=== PATIENT | female | born 1975 | race Caucasian/White ===

== ENCOUNTER 2022-05-02 18:21 | Emergency (ER) | payer OTHER ==
[2022-05-02 18:44] VITALS: BP 135/93; PULSE 68; RESP 18; TEMP 98.5; BMI 25.0
== END 2022-05-02 20:13 | disposition home or self-care (01) ==
LOC: FER 18:21
DX: R22.42 Localized swelling, mass and lump, left lower limb (principal)
CPT/HCPCS: 93971-TC; 99284-25